=== PATIENT | male | born 1975 | race Caucasian/White ===

== ENCOUNTER → 2017-02-12 | Outpatient (CLI) | payer OTHER ==
--- NOTE | 2017-02-12 09:52 | KCIC ---
Single view chest and left-sided rib study dated 02/12/2017. No comparison available. Clinical indication: Chest pain, left rib pain. Pain for 3 weeks. FINDINGS: AP view of the chest shows normal heart and mediastinal contours. Lungs are clear without focal consolidation. Vascular interstitium within normal limits. No pleural effusion or pneumothorax. Dedicated views of left-sided ribs show no evidence of displaced rib fracture. No acute osseous abnormality. IMPRESSION: 1. No acute radiographic abnormality. No evidence of displaced left rib fracture. Electronically signed by: Shukri Hurt MD (02/12/2017 9:49 AM) [email or web address]
== END | disposition home or self-care (01) ==
LOC: KCIC 09:20
PROVIDERS: ATTEND Nurse Practitioner Family
DX: R07.81 Pleurodynia (principal); R07.9 Chest pain, unspecified; M54.6 Pain in thoracic spine
CPT/HCPCS: 71101

== ENCOUNTER → 2018-05-06 | Outpatient (CLI) | payer OTHER ==
--- NOTE | 2018-05-06 14:14 | KCIC ---
MR of the left knee Indication: Left knee pain, injury over 20 years ago. Medial pain for 5 weeks. Technique: The standard multiplanar sequences are obtained. FINDINGS: Artifact: No significant image degradation. Medial meniscus:Intact. Lateral meniscus: Intact. Anterior cruciate ligament: Intact Posterior cruciate ligament: Intact Medial collateral ligament: Intact. Lateral structures: * Iliotibial band: Intact. * Lateral collateral ligament: Intact. * Biceps femoris tendon: Intact * Popliteus tendon attachment: Intact Extensive mechanism: * Patellar tendon: Intact * Quadriceps tendon: Intact * Retinacular structures: Intact Fluid: Trace joint effusion. No significant Collins's cyst. Intra-articular bodies: None visualized Joint compartments * patellofemoral joint:Intact * medial compartment:Intact * lateral compartment:Intact Bones: No significant lesion or acute fracture. Soft tissue: Unremarkable Impression: No acute findings or internal derangement. Electronically signed by: Shukri De La O MD (05/06/2018 2:11 PM) [id number]
== END | disposition home or self-care (01) ==
LOC: KCIC MRI 10:56
PROVIDERS: ATTEND Nurse Practitioner Family
DX: M25.562 Pain in left knee (principal)
CPT/HCPCS: 73721